=== PATIENT | male | born 1965 | race Caucasian/White ===

== ENCOUNTER 2016-02-22 11:52 | Observation (INO) | payer BC ==
[~2016-02-22] VITALS: Ht 175.3 cm; Wt 108.1 kg
[~2016-02-22 11:52] MED LIST: ACET-1311 PO; ATOR-24 PO; CHOL100010 PO; CRG25 PO; INSDGI SC; INSUINJ14 SC; LISI40TA PO; MULTTAB58 PO; PRLSR20 PO
[2016-02-22] MEDS ORDERED: IBUP-1050 PO (12:43)
[2016-02-22 13:02] LABS: HEMATOCRIT 42.8 % (42-52); MEAN CORPUSCULAR HEMOGLOBIN 32.2 pg (25-34); MEAN CORPUSCULAR HGB CONC 36.2 g/dl (32-36); MEAN PLATELET VOLUME 10.9 fL (7.4-10.4); PLATELET COUNT 241 K/uL (130-400); RED BLOOD COUNT 4.81 M/uL (4.7-6.1); WHITE BLOOD COUNT 9.48 K/uL (4.8-10.8)
[2016-02-22 13:16] LABS: ALB/GLOB RATIO 1.2 (0.9-2); BUN/CREATININE RATIO 11.7 (10-20); CALCIUM 9.2 mg/dl (8.5-10.1); CREATININE 1.2 mg/dl (0.60-1.40); POTASSIUM 4.1 mmol/L (3.5-5.1)
[2016-02-22 14:33] LABS: PROTHROMBIN TIME (PATIENT) 10.5 SECONDS (9.0-12.0)
[2016-02-22] MEDS ORDERED: ONDANSETRON INJ 2 MG/ML 2 ML VIAL IV PRN (16:15)
[2016-02-22] MEDS ORDERED: ACETAMINOPHEN 325 MG TAB PO PRN (16:15)
[2016-02-22] MEDS ORDERED: CARVEDILOL 25 MG TAB PO ONE (16:50)
[2016-02-22] MEDS ORDERED: GLUCOSE 10 TABS/TUBE PO PRN (17:00)
[2016-02-22] MEDS ORDERED: GLUCOSE 40% GEL 15 GM TUBE PO PRN (17:00)
[2016-02-22] MEDS ORDERED: GLUCAGON FOR INJ 1 MG VIAL SQ PRN (17:00)
[2016-02-22] MEDS ORDERED: DEXTROSE 50% 50 ML SYR IV PRN (17:00)
[2016-02-22] MEDS ORDERED: CARVEDILOL 25 MG TAB PO STA (17:12)
--- NOTE | 2016-02-22 17:26 | EMERGENCY ROOM VISIT NOTE ---
History Report prepared by Rodney: Evelyn Guzmán Under the Supervision of: Dr. Chon Griffith D.O. First contact with patient: 12:57 Chief Complaint: GI ASSESSMENT Stated Complaint: BLOOD WHEN HAVING BOWEL MOVEMENT Nursing Triage Summary: Triage note: pt reports this am when he had a bm there was bright red blood. pt right abd pain. pt denies any nausea or vomitting. History of Present Illness The patient is a 50 year old male who presents to the Emergency Room with complaints of sudden hematochezia that was noticed this morning. The patient states that he had a bowel movement this morning and when he wipe he saw blood on the toilet paper. He turned and looked in the toilet but it was automatic flushing so it was starting to flush. He states that he saw about 1/4 cup of blood in the toilet before it flushed. The blood was bright red and did not have any clots. The bowel movement felt normal. He is also experiencing a cough and RUQ abdominal pain. The patient denies dizziness and lightheadedness. The patient has a history of hemorrhoids but has not experienced any issues with them recently. The patient's most recent colonoscopy was within the last year but he is unsure of the exact date. The patient is not on any blood thinners. He states that he was seen in the ED last week and that pain is improving. Source of History: patient Onset: this morning Position: other (rectum) Quality: other (hematochezia, bright red, no clots) Timing: other (sudden) Associated Symptoms: + abdominal pain (RUQ), + cough Note: no dizziness, no lightheadedness Review of Systems See HPI for pertinent positives & negatives. A total of 10 systems reviewed and were otherwise negative. Past Medical & Surgical Medical Problems: (1) High cholesterol (2) HTN (hypertension) (3) Hypertrophic cardiomyopathy (4) Rectal bleeding (5) Type 2 diabetes mellitus Family History No pertinent family history Social History Smoking Status: Current Every Day Smoker Marital Status: single Occupation Status: employed Current/Historical Medications Scheduled Atorvastatin (Lipitor), 40 MG PO QAM Carvedilol (Carvedilol), 25 MG PO BID Cholecalciferol (Vitamin D), 1,000 INTER.UNIT PO QAM Ibuprofen (Advil), 200-600 MG PO Q4H Insulin Aspart (Novolog Penfill), 8 UNITS SC AC Insulin Glargine (Lantus), 24 UNITS SC QPM Lisinopril (Zestril), 40 MG PO QAM Multiple Vitamin (Multivitamin), 1 TAB PO QAM Omeprazole (Prilosec), 20 MG PO QAM Allergies Coded Allergies: Bupropion (Verified Allergy, Unknown, HIVES, 02/22/16) Physical Exam Vital Signs Date Time Temp Pulse Resp B/P Pulse Ox O2 Delivery O2 Flow Rate FiO2 02/22/16 16:15 71 18 215/103 98 Room Air 02/22/16 12:38 37.0 71 18 167/81 97 Room Air 02/22/16 12:05 37.0 71 167/81 97 Room Air Physical Exam GENERAL: alert, sitting up in bed, well appearing, well nourished, no acute distress, non-toxic EYE EXAM: normal conjunctiva OROPHARYNX: no exudate, no erythema, lips, buccal mucosa, and tongue normal and mucous membranes are moist NECK: supple, no nuchal rigidity, no adenopathy, non-tender LUNGS: Clear to auscultation. Normal chest wall mechanics HEART: no murmurs, S1 normal and S2 normal ABDOMEN: abdomen soft, non-tender, normo-active bowel sounds, no masses, no rebound or guarding. BACK: Back is symmetrical on inspection and there is no deformity, no midline tenderness, no CVA tenderness. RECTAL: External hemorrhoids without bleeding, heme positive blood. SKIN: no rashes and no bruising UPPER EXTREMITIES: upper extremities are grossly normal. LOWER EXTREMITIES: No pitting edema. NEURO EXAM: Normal sensorium, cranial nerves II-XII grossly intact, normal speech, no gross weakness of arms, no gross weakness of legs. Medical Decision & Procedures Laboratory Results 02/22/16 12:00 02/22/16 12:00 Test 02/22/16 12:00 02/22/16 14:10 02/22/16 15:36 Red Blood Count 4.81 M/uL (4.7-6.1) Mean Corpuscular Volume 89.0 fL (80-100) Mean Corpuscular Hemoglobin 32.2 pg (25-34) Mean Corpuscular Hemoglobin Concent 36.2 g/dl (32-36) RDW Standard Deviation 44.1 fL (36.4-46.3) RDW Coefficient of Variation 13.5 % (11.5-14.5) Mean Platelet Volume 10.9 fL (7.4-10.4) Anion Gap 8.0 mmol/L (3-11) Est Creatinine Clear Calc Drug Dose 88.4 ml/min Estimated GFR () 80.1 Estimated GFR (Non- 69.1 BUN/Creatinine Ratio 11.7 (10-20) Calcium Level 9.2 mg/dl (8.5-10.1) Total Bilirubin 0.5 mg/dl (0.2-1) Aspartate Amino Transf (AST/SGOT) 27 U/L (15-37) Alanine Aminotransferase (ALT/SGPT) 46 U/L (12-78) Alkaline Phosphatase 138 U/L (45-117) Total Protein 7.4 gm/dl (6.4-8.2) Albumin 4.1 gm/dl (3.4-5.0) Globulin 3.3 gm/dl (2.5-4.0) Albumin/Globulin Ratio 1.2 (0.9-2) Chemistry Specimen Hemolysis Prothrombin Time 10.5 SECONDS (9.0-12.0) Prothromb Time International Ratio 1.0 (0.9-1.1) Activated Partial Thromboplast Time 25.9 SECONDS (21.0-31.0) Partial Thromboplastin Ratio 1.0 Bedside Glucose 99 mg/dl (70-99) Laboratory results per my review. ED Course ED COURSE: Vital signs were reviewed and showed hypertension. The patients medical record was reviewed The above diagnostic studies were performed and reviewed. ED treatments and interventions as stated above. 1300: The patient was evaluated in room C1. A complete history and physical examination was performed. 1513: Upon reevaluation, the patient is resting comfortably. I discussed my findings with the patient and he understands and agrees with the treatment plan. Based on the patients age, coexisting illnesses, exam and lab findings the decision to treat as an inpatient was made. The patient remained stable while under my care. The patient will be evaluated for further management. 1525: I reviewed the patient's case with Martha Kumar. She will evaluate the patient for further management. Medical Decision Differential diagnosis includes etiologies such as diverticulosis, AVM, coagulopathy, colitis, inflammatory bowel disease, malignancy, Odalys-Graham tear, esophagitis, peptic ulcer disease, variceal bleed, gastritis, epistaxis, fissure, hemorrhoids, as well as others were entertained. Patient is a 50-year-old male who presents the ER for bright red blood per rectum. He notes this occurred prior to arrival he had a bowel movement and had a large amount of blood in the bowel. Patient denies any lightheadedness or dizziness. No chest pain. No blood thinners. Labs showed no significant leukocytosis or anemia. BMP along with LFTs, bilirubin or unremarkable. INR was unremarkable. His abdominal exam is completely benign. No signs peritonitis. History is not consistent with ischemic colitis. No history of A. fib. Rectal shows hemorrhoids without active bleeding. He was heme positive. Patient family were updated at bedside. He is admitted to internal medicine for observation for GI bleed. Consults Time Called: 1518 Consulting Physician: Martha Kumar Returned Call: 1525 I reviewed the patient's case with Martha Kumar. She will evaluate the patient for further management. Impression Primary Impression: GI bleed Scribe Attestation The scribe's documentation has been prepared under my direction and personally reviewed by me in its entirety. I confirm that the note above accurately reflects all work, treatment, procedures, and medical decision making performed by me. Departure Information Dispostion Being Evaluated By Hospitalist Referrals Santino Bhatt D.O. (PCP) Patient Instructions A Signature Page, My [facility]
--- NOTE | 2016-02-22 17:30 | Gastrointestinal Consultation ---
Gastrointestinal Consultation Date of Consultation: Feb 22, 2016 Consulting Physician: Dr. Meadows History of Present Illness Patient is a 50 year old male with past medical history significant for hypertrophic cardiocmyopathy, T2DM, HTN and elevated triglycerides who presented to the ED with one episode of BRBPR. He reports that he was in his usual state of health until an episode of BRBPR this morning around 9 am. He denies any associated symptoms. He reports bright red blood on the toilet tissue , and mixed in with the water. He reports the stool was brown and without any blood. He denies any abdominal pain, chest pain, SOB, lightheadedness, dizziness , fever or chills. He denies any other history of black/bloody stools. He was recently in the ED for back pain and was provided with narcotics. He said he has been constipated for the past few days and has been straining frequently with his stools. Constipation has since resolved. He also reports RUQ pain. The pain is dull in nature. He reports he was wearing a back brace for the past two days and the pain feels superficial and is located in the area of the edge of the brace. He denies any nausea, vomiting, radiation of the pain or other symptoms. Colonoscopy for screening in 2014: The perianal and digital rectal examinations were normal. A 3 mm polyp was found in the sigmoid colon. The polyp was sessile. The polyp was removed with a cold biopsy forceps. Resection and retrieval were complete. There was a small lipoma, at 40 cm proximal to the anus. Biopsies were taken with a cold forceps for histology. There were also two small lipomas in the ascending and transverse colon. He is hemodynamically stable from previous ED visit 01/2016. Hgb 15.5 Family History No pertinent family history Social History Smoking Status: Current Every Day Smoker Marital Status: single Occupation Status: employed Allergies Coded Allergies: Bupropion (Verified Allergy, Unknown, HIVES, 02/22/16) Current Medications Home Meds and Scripts Medications Dose Route/Sig Max Daily Dose Days Date Category Advil (Ibuprofen) 200 Mg Tab 200-600 Mg PO Q4H 02/22/16 Reported Carvedilol 25 Mg Tab 25 Mg PO BID 02/14/16 Reported Vitamin D (Cholecalciferol) 1,000 Inter.unit Tab 1,000 Inter.unit PO QAM 12/20/14 Reported Multivitamin (Multiple Vitamin) 1 Tab Tab 1 Tab PO QAM 12/20/14 Reported Zestril (Lisinopril) 40 Mg Tab 40 Mg PO QAM 12/20/14 Reported Novolog Penfill (Insulin Aspart) 100 Unit/ Inj 8 Units SC AC 12/20/14 Reported Lantus (Insulin Glargine) 100 Unit/Ml Inj 24 Units SC QPM 12/20/14 Reported Prilosec (Omeprazole) 20 Mg Capcr 20 Mg PO QAM 12/20/14 Reported Lipitor (Atorvastatin Calcium) 40 Mg Tab 40 Mg PO QAM 12/20/14 Reported Review of Systems Constitutional: No chills, No fever Respiratory: No cough, No shortness of breath Cardiac: No chest pain, No edema Abdomen: + GI bleeding, No constipation, No diarrhea, No nausea, No pain, No vomiting Skin: No rash Physical Exam Date Time Temp Pulse Resp B/P Pulse Ox O2 Delivery O2 Flow Rate FiO2 02/22/16 16:15 71 18 215/103 98 Room Air 02/22/16 12:38 37.0 71 18 167/81 97 Room Air 02/22/16 12:05 37.0 71 18 167/81 97 Room Air General Appearance: no apparent distress Eyes: PERRL ENT: hearing grossly normal Neck: supple, trachea midline Respiratory/Chest: lungs clear, normal breath sounds, no respiratory distress, no accessory muscle use Cardiovascular: regular rate, rhythm, no edema, no gallop, no JVD, no murmur Abdomen: normal bowel sounds, non tender, soft, no organomegaly Neurologic/Psych: alert, normal mood/affect, oriented x 3 Skin: warm/dry Laboratory Results Last 24 Hours Test 02/22/16 12:00 02/22/16 14:10 02/22/16 15:36 White Blood Count 9.48 K/uL Red Blood Count 4.81 M/uL Hemoglobin 15.5 g/dL Hematocrit 42.8 % Mean Corpuscular Volume 89.0 fL Mean Corpuscular Hemoglobin 32.2 pg Mean Corpuscular Hemoglobin Concent 36.2 g/dl RDW Standard Deviation 44.1 fL RDW Coefficient of Variation 13.5 % Platelet Count 241 K/uL Mean Platelet Volume 10.9 fL Sodium Level 138 mmol/L Potassium Level 4.1 mmol/L Chloride Level 105 mmol/L Carbon Dioxide Level 25 mmol/L Anion Gap 8.0 mmol/L Blood Urea Nitrogen 14 mg/dl Creatinine 1.20 mg/dl Est Creatinine Clear Calc Drug Dose 88.4 ml/min Estimated GFR () 80.1 Estimated GFR (Non- 69.1 BUN/Creatinine Ratio 11.7 Random Glucose 119 mg/dl Calcium Level 9.2 mg/dl Total Bilirubin 0.5 mg/dl Aspartate Amino Transf (AST/SGOT) 27 U/L Alanine Aminotransferase (ALT/SGPT) 46 U/L Alkaline Phosphatase 138 U/L Total Protein 7.4 gm/dl Albumin 4.1 gm/dl Globulin 3.3 gm/dl Albumin/Globulin Ratio 1.2 Chemistry Specimen Hemolysis Prothrombin Time 10.5 SECONDS Prothromb Time International Ratio 1.0 Activated Partial Thromboplast Time 25.9 SECONDS Partial Thromboplastin Ratio 1.0 Bedside Glucose 99 mg/dl Impression Patient is a 50 year old male being evaluated for painless rectal bleeding, with visualized external hemorrhoids, and a recent colonoscopy in 2014 with 3 lipomas and 1 sessile polyp. He reports one episode of bleeding early this AM without any associated symptoms. He has yet to have another episode of bleeding. Differentials include hemorrhoidal bleed, diverticular bleed, colon CA etc Plan Monitor overnight Clear Liquids - can advance diet tomorrow AM if there are no more episodes of bleeding Avoid narcotics if possible RUQ US Monitor H&H Monitor stools for bleeding overnight GI will follow and re-assess need for repeat colonoscopy if bleeding persists
--- NOTE | 2016-02-22 18:07 | DIAGNOSTIC IMAGING REPORT ---
Right upper quadrant ultrasound GALLBLADDER-ABD LIMITED CLINICAL HISTORY: r/o gallbladder pathology pain. Nausea. TECHNIQUE: Ultrasound COMPARISON STUDY: None FINDINGS: Fatty infiltration of liver. Small gallbladder polyp. Trace gallbladder sludge. No shadowing gallstones. Common bile duct 2 mm. Poor visibility of the pancreas. Right kidney is negative for hydronephrosis. IMPRESSION: 1. Fatty infiltration of liver. 2. Small gallbladder polyp. 3. Normal caliber bile duct. Electronically signed by: Amilcar Massey M.D. 02/22/2016 6:06 PM
[2016-02-22 18:35] VITALS: BP 198/92; PULSE 68; TEMP 36.5; O2SAT 95
[2016-02-22 18:46] VITALS: BP 198/92; PULSE 68; TEMP 36.5; Ht 175.3 cm; Wt 108.1 kg
[2016-02-22] MEDS ORDERED: IV FLUIDS COMPLETED PRN (19:30)
[2016-02-22] MEDS ORDERED: INFLUENZA VIRUS QUAD VACCINE 0.5 ML SYR IM. ONE (19:45)
[2016-02-22] MEDS ORDERED: INFLUENZA ADMINISTRATION CHARGE ONE (19:45)
[2016-02-22] MEDS: INSULIN ASPART 100 UNITS/ML 3 ML PEN SC SCH (21:39)
--- NOTE | 2016-02-22 22:23 | History and Physical ---
History & Physical Date & Time of Service: Feb 22, 2016 at 17:12 Chief Complaint: Blood When Having Bowel Movement Primary Care Physician: Santino Bhatt D.O. History of Present Illness Source: family, clinic records, hospital records This is a 50 year old male with PMH of GERD, HTN, HOCM, HL, DM 2, and other problems listed below who presents to ED for rectal bleeding. Patient had 1 episode of bright red blood per rectum this morning noticed on toilet paper and 1-2 tablespoons in toilet along with brown colored stool. Patient was recently in ER for back strain and was prescribed narcotic medication, and was constipated after that and had been straining, which resolved. No rectal pain. He has had mild RUQ pain since yesterday which he attributes to irritation from wearing his back brace. He was eating normally without any increased discomfort. He has a cough with yellow sputum for 1 week. No dizziness, fever chills, rhinorrhea, chest pain, SOB, nausea, vomiting, diarrhea, black tarry stools. He has been taking ibuprofen 400 mg q4h PRN back pain. Patient's last colonoscopy was in 12/2014 showed polyp and lipomas. Denies hx of GIB. 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 requests patch. advised for cessation.) Alcohol Use: none Drug Use: none Marital Status: single Occupational Status: employed Multi-Drug Resistant Organisms History of MDRO: No Allergies Coded Allergies: Bupropion (Verified Allergy, Unknown, HIVES, 02/22/16) Home Medications Scheduled Atorvastatin (Lipitor), 40 MG PO QAM Carvedilol (Carvedilol), 25 MG PO BID Cholecalciferol (Vitamin D), 1,000 INTER.UNIT PO QAM Insulin Aspart (Novolog Penfill), 8 UNITS SC AC Insulin Glargine (Lantus), 24 UNITS SC QPM Lisinopril (Zestril), 40 MG PO QAM Multiple Vitamin (Multivitamin), 1 TAB PO QAM Omeprazole (Prilosec), 20 MG PO QAM Review of Systems Ten point review of systems performed with pertinent positives and negatives per HPI. Physical Exam Vital Signs Date Time Temp Pulse Resp B/P Pulse Ox O2 Delivery O2 Flow Rate FiO2 02/22/16 16:15 71 18 215/103 98 Room Air 02/22/16 12:38 37.0 71 18 167/81 97 Room Air 02/22/16 12:05 37.0 71 18 167/81 97 Room Air General Appearance: WD/WN, no apparent distress, + pertinent finding (alert pleasant cooperative 50 year old male) Head: normocephalic, atraumatic Eyes: normal inspection, PERRL, EOMI ENT: normal ENT inspection, hearing grossly normal, pharynx normal Neck: supple, trachea midline Respiratory/Chest: lungs clear, normal breath sounds, no respiratory distress, no accessory muscle use Cardiovascular: regular rate, rhythm, no murmur, normal peripheral pulses Abdomen/GI: normal bowel sounds, non tender, soft Extremities/Musculoskelatal: no calf tenderness, normal capillary refill, no pedal edema Neurologic/Psych: alert, normal mood/affect, oriented x 3, + pertinent finding (no gross focal deficit) Skin: normal color, warm/dry Diagnostics Laboratory Results Results Past 24 Hours Test 02/22/16 12:00 02/22/16 14:10 02/22/16 15:36 Range/Units White Blood Count 9.48 4.8-10.8 K/uL Red Blood Count 4.81 4.7-6.1 M/uL Hemoglobin 15.5 14.0-18.0 g/dL Hematocrit 42.8 42-52 % Mean Corpuscular Volume 89.0 80-100 fL Mean Corpuscular Hemoglobin 32.2 25-34 pg Mean Corpuscular Hemoglobin Concent 36.2 32-36 g/dl RDW Standard Deviation 44.1 36.4-46.3 fL RDW Coefficient of Variation 13.5 11.5-14.5 % Platelet Count 241 130-400 K/uL Mean Platelet Volume 10.9 7.4-10.4 fL Sodium Level 138 136-145 mmol/L Potassium Level 4.1 3.5-5.1 mmol/L Chloride Level 105 98-107 mmol/L Carbon Dioxide Level 25 21-32 mmol/L Anion Gap 8.0 3-11 mmol/L Blood Urea Nitrogen 14 7-18 mg/dl Creatinine 1.20 0.60-1.40 mg/dl Est Creatinine Clear Calc Drug Dose 88.4 ml/min Estimated GFR () 80.1 Estimated GFR (Non- 69.1 BUN/Creatinine Ratio 11.7 10-20 Random Glucose 119 70-99 mg/dl Calcium Level 9.2 8.5-10.1 mg/dl Total Bilirubin 0.5 0.2-1 mg/dl Aspartate Amino Transf (AST/SGOT) 27 15-37 U/L Alanine Aminotransferase (ALT/SGPT) 46 12-78 U/L Alkaline Phosphatase 138 45-117 U/L Total Protein 7.4 6.4-8.2 gm/dl Albumin 4.1 3.4-5.0 gm/dl Globulin 3.3 2.5-4.0 gm/dl Albumin/Globulin Ratio 1.2 0.9-2 Chemistry Specimen Hemolysis Prothrombin Time 10.5 9.0-12.0 SECONDS Prothromb Time International Ratio 1.0 0.9-1.1 Activated Partial Thromboplast Time 25.9 21.0-31.0 SECONDS Partial Thromboplastin Ratio 1.0 Bedside Glucose 99 70-99 mg/dl Diagnostic Radiology Right upper quadrant ultrasound GALLBLADDER-ABD LIMITED CLINICAL HISTORY: r/o gallbladder pathology pain. Nausea. TECHNIQUE: Ultrasound COMPARISON STUDY: None FINDINGS: Fatty infiltration of liver. Small gallbladder polyp. Trace gallbladder sludge. No shadowing gallstones. Common bile duct 2 mm. Poor visibility of the pancreas. Right kidney is negative for hydronephrosis. IMPRESSION: 1. Fatty infiltration of liver. 2. Small gallbladder polyp. 3. Normal caliber bile duct. Impression Assessment and Plan RECTAL BLEEDING Had 1 episode BRBPR prior to arrival; heme positive rectal exam with external hemorrhoids as per ER provider Likely lower GI bleed H/H stable; hemodynamically stable Monitor H/H q8h Clear liquid diet Consult GI- appreciate input RUQ PAIN Check GB ultrasound- fatty liver, small gallbladder polyp, no CBD distension HYPERTENSION BP elevated in ER Give PM dose of coreg Continue coreg and lisinopril DM TYPE 2 Hold Lantus while on clear liquid diet Insulin sliding scale DYSLIPIDEMIA Continue statin TOBACCO ABUSE Cessation advised Nicotine patch ordered DVT PROPHYLAXIS SCDs due to gi bleeding DISPOSITION Obs to telemetry Follows with Dr. Bhatt for primary care Patient seen in collaboration with Dr. Lott. Please see his addendum. Attending Addendum Pt was seen and examined. Agree with Hanh's PA exam, assessment and plan. 50 year old male with PMH of GERD, HTN, HOCM, HL, DM 2 presents to ED for rectal bleeding after he had an episode of bright red blood per rectum this morning. Denies any weakness, abdominal pain,dizziness and SOB. General- no acute distress Head- atraumatic Eyes- PERRL, EOMI ENT- oropharynx clear Neck- supple, no JVD Lungs- clear to auscultation and percussion Heart- regular rhythm Abdomen- normal bowel sounds, soft Extremities- no calf tenderness a/p RECTAL BLEEDING Hgb on admission stable Monitor H/H, will transfuse if h/h drop below 8 Clear liquid diet Will Consult GI PPI Lab, imaging reviewed Please refer to Martha's PA documentation for other problems. Gina Lott MD VTE Prophylaxis VTE Risk Assessment Done? Y/N: Yes Risk Level: Moderate
[2016-02-22 22:34] LABS: HEMATOCRIT 40.9 % (42-52)
[2016-02-22 23:30] VITALS: BP 192/99; PULSE 67; TEMP 36.8; O2SAT 93
[2016-02-23] VITALS (7 sets, daily range): BP systolic 154–185; BP diastolic 76–80; PULSE 70–76; TEMP 36.5–36.8; O2SAT 94–97
[2016-02-23] MEDS ORDERED: HydrALAZINE HCL 20 MG/ML VIAL IV. STA (00:04)
[2016-02-23] MEDS ORDERED: ENALAPRILAT IV 2.5 MG in DEXTROSE 5% 25ML 25 ML IV ONE (00:30)
[2016-02-23 06:10] LABS: HEMATOCRIT 42.1 % (42-52); MEAN CELL VOLUME 88.1 fL (80-100); MEAN CORPUSCULAR HEMOGLOBIN 31.4 pg (25-34); MEAN CORPUSCULAR HGB CONC 35.6 g/dl (32-36); MEAN PLATELET VOLUME 10.5 fL (7.4-10.4); PLATELET COUNT 228 K/uL (130-400); RED BLOOD COUNT 4.78 M/uL (4.7-6.1); WHITE BLOOD COUNT 9.91 K/uL (4.8-10.8)
[2016-02-23 06:45] LABS: BUN/CREATININE RATIO 11.1 (10-20); CALCIUM 9.2 mg/dl (8.5-10.1); CREATININE 1.1 mg/dl (0.60-1.40); MAGNESIUM 2.1 mg/dl (1.8-2.4); POTASSIUM 3.8 mmol/L (3.5-5.1)
[2016-02-23] MEDS ORDERED: HydrALAZINE HCL 20 MG/ML VIAL IV. PRN (08:00)
[2016-02-23] MEDS: INSULIN ASPART 100 UNITS/ML 3 ML PEN SC SCH ×2 (08:42→13:40)
[2016-02-23] MEDS ORDERED: LISINOPRIL 40 MG TAB PO SCH (09:00)
[2016-02-23] MEDS ORDERED: CHOLECALCIFEROL 1000 INTER.UNIT TAB PO SCH (09:00)
[2016-02-23] MEDS ORDERED: MULTIVITAMIN TAB PO SCH (09:00)
[2016-02-23] MEDS ORDERED: CARVEDILOL 25 MG TAB PO SCH (09:00)
[2016-02-23] MEDS ORDERED: PANTOprazole SOD 40 MG TAB PO SCH (09:00)
[2016-02-23] MEDS ORDERED: NICOTINE 21 MG/24 HR TDSY TD SCH (09:00)
[2016-02-23] MEDS ORDERED: ATORVASTATIN 40 MG TAB PO SCH (09:00)
--- NOTE | 2016-02-23 09:51 | Gastroenterology Progress Note ---
Progress Note Date of Service: Feb 23, 2016 Subjective Pt evaluation today including: conversation w/ patient, physical exam, chart review Patient states that he felt well overnight. Denies any addition BM or rectal bleeding. He has been passing gas without any black/bloody discharge. HGB on admission was 15.5 rechecked at 14.7 and rechecked today at 15. Patient states that he would like to be discharged and followup outpatient if needed. He states that he is willing to repeat an outpatient colonoscopy if warranted. Denies abd pain, chest pain, SOB, fever, chills. Patient would like to get the flu shot if possible before discharge. RUQ US Fatty infiltration of liver. Small gallbladder polyp. Trace gallbladder sludge. No shadowing gallstones. Common bile duct 2 mm. Poor visibility of the pancreas. Right kidney is negative for hydronephrosis Review of Systems Constitutional: No chills, No fever ENT: No hearing loss Cardiac: No chest pain, No edema Abdomen: No GI bleeding, No constipation, No diarrhea, No nausea, No pain, No vomiting Medications Current Inpatient Medications Medications (Trade) Dose Ordered Sig/Nicholas Route Start Time Stop Time Status Last Admin Dose Admin Acetaminophen (Tylenol Tab) 650 mg Q4H PRN PO 02/22/16 16:15 03/23/16 16:14 02/23/16 08:49 650 MG Ondansetron HCl (Zofran Inj) 4 mg Q6H PRN IV 02/22/16 16:15 03/23/16 16:14 Atorvastatin Calcium (Lipitor Tab) 40 mg QAM PO 02/23/16 09:00 03/24/16 08:59 02/23/16 08:40 40 MG Cholecalciferol (Vitamin D Tab) 1,000 inter.unit QAM PO 02/23/16 09:00 03/24/16 08:59 02/23/16 08:40 1,000 INTER.UNIT Lisinopril (Zestril Tab) 40 mg QAM PO 02/23/16 09:00 03/24/16 08:59 02/23/16 08:40 40 MG Multivitamins (Multivitamin Tab) 1 tab QAM PO 02/23/16 09:00 03/24/16 08:59 02/23/16 08:40 1 TAB Pantoprazole Sodium (Protonix Tab) 40 mg QAM PO 02/23/16 09:00 03/24/16 08:59 02/23/16 08:40 40 MG Insulin Aspart (novoLOG ASPART) SLIDING SCALE If C... ACHS SC 02/22/16 21:00 03/23/16 20:59 02/23/16 08:42 5 UNITS Glucose (Glucose 40% Gel) 15-30 GRAMS 15 GRAMS... UD PRN PO 02/22/16 17:00 03/23/16 16:59 Glucose (Glucose Chew Tab) 4-8 Tablets 4 Tabl... UD PRN PO 02/22/16 17:00 03/23/16 16:59 Dextrose (Dextrose 50% 50ML Syringe) 25-50ML OF 50% DW IV FOR... UD PRN IV 02/22/16 17:00 03/23/16 16:59 Glucagon (Glucagon Inj) 1 mg UD PRN SQ 02/22/16 17:00 03/23/16 16:59 Miscellaneous (Iv Fluids Completed) 1 ea PRN PRN N/A 02/22/16 19:30 02/21/17 19:29 Nicotine (Nicoderm Cq 21MG Patch) 1 patch QAM TD 02/23/16 09:00 03/24/16 08:59 02/23/16 09:30 1 PATCH Miscellaneous (Remove Nicoderm Patch) 1 ea HS N/A 02/23/16 21:00 03/24/16 20:59 Hydralazine HCl (HydrALAZINE INJ) 10 mg Q4 PRN IV. 02/23/16 08:00 03/24/16 07:59 Objective Vital Signs Date Time Temp Pulse Resp B/P Pulse Ox O2 Delivery O2 Flow Rate FiO2 02/23/16 08:00 Room Air 02/23/16 08:00 36.8 76 16 185/80 94 Room Air 02/23/16 08:00 94 Room Air 02/23/16 04:00 Room Air 02/23/16 03:57 36.5 70 21 174/79 94 Nasal Cannula 2.0 02/23/16 01:34 76 166/77 02/23/16 00:00 Room Air 02/22/16 23:30 36.8 67 22 192/99 93 Room Air 02/22/16 20:10 Room Air 02/22/16 18:46 36.5 68 18 198/92 Room Air 02/22/16 18:35 36.5 68 18 198/92 95 Room Air 02/22/16 18:26 69 18 198/99 96 02/22/16 18:21 69 18 198/99 96 Room Air 02/22/16 16:15 71 18 215/103 98 Room Air 02/22/16 12:38 37.0 71 18 167/81 97 Room Air 02/22/16 12:05 37.0 71 18 167/81 97 Room Air Physical Exam General Appearance: no apparent distress Eyes: PERRL ENT: hearing grossly normal Neck: supple, trachea midline Respiratory/Chest: lungs clear, normal breath sounds, no respiratory distress, no accessory muscle use Cardiovascular: regular rate, rhythm, no edema, no gallop, no JVD, no murmur Abdomen: normal bowel sounds, non tender, soft, no organomegaly Neurologic/Psych: alert, normal mood/affect, oriented x 3 Skin: normal color, no jaundice, warm/dry Laboratory Results Last 24 Hours Test 02/22/16 12:00 02/22/16 14:10 02/22/16 15:36 02/22/16 20:47 White Blood Count 9.48 K/uL Red Blood Count 4.81 M/uL Hemoglobin 15.5 g/dL Hematocrit 42.8 % Mean Corpuscular Volume 89.0 fL Mean Corpuscular Hemoglobin 32.2 pg Mean Corpuscular Hemoglobin Concent 36.2 g/dl RDW Standard Deviation 44.1 fL RDW Coefficient of Variation 13.5 % Platelet Count 241 K/uL Mean Platelet Volume 10.9 fL Sodium Level 138 mmol/L Potassium Level 4.1 mmol/L Chloride Level 105 mmol/L Carbon Dioxide Level 25 mmol/L Anion Gap 8.0 mmol/L Blood Urea Nitrogen 14 mg/dl Creatinine 1.20 mg/dl Est Creatinine Clear Calc Drug Dose 88.4 ml/min Estimated GFR () 80.1 Estimated GFR (Non- 69.1 BUN/Creatinine Ratio 11.7 Random Glucose 119 mg/dl Calcium Level 9.2 mg/dl Total Bilirubin 0.5 mg/dl Aspartate Amino Transf (AST/SGOT) 27 U/L Alanine Aminotransferase (ALT/SGPT) 46 U/L Alkaline Phosphatase 138 U/L Total Protein 7.4 gm/dl Albumin 4.1 gm/dl Globulin 3.3 gm/dl Albumin/Globulin Ratio 1.2 Chemistry Specimen Hemolysis Prothrombin Time 10.5 SECONDS Prothromb Time International Ratio 1.0 Activated Partial Thromboplast Time 25.9 SECONDS Partial Thromboplastin Ratio 1.0 Bedside Glucose 99 mg/dl 250 mg/dl Test 02/22/16 22:20 02/22/16 23:42 02/23/16 05:54 02/23/16 08:05 Hemoglobin 14.7 g/dL 15.0 g/dL Hematocrit 40.9 % 42.1 % Hepatitis C Antibody Screen NEG Bedside Glucose 131 mg/dl 154 mg/dl White Blood Count 9.91 K/uL Red Blood Count 4.78 M/uL Mean Corpuscular Volume 88.1 fL Mean Corpuscular Hemoglobin 31.4 pg Mean Corpuscular Hemoglobin Concent 35.6 g/dl RDW Standard Deviation 43.6 fL RDW Coefficient of Variation 13.4 % Platelet Count 228 K/uL Mean Platelet Volume 10.5 fL Sodium Level 137 mmol/L Potassium Level 3.8 mmol/L Chloride Level 103 mmol/L Carbon Dioxide Level 26 mmol/L Anion Gap 8.0 mmol/L Blood Urea Nitrogen 12 mg/dl Creatinine 1.10 mg/dl Est Creatinine Clear Calc Drug Dose 95.2 ml/min Estimated GFR () 89.0 Estimated GFR (Non- 76.8 BUN/Creatinine Ratio 11.1 Random Glucose 139 mg/dl Calcium Level 9.2 mg/dl Magnesium Level 2.1 mg/dl Assessment and Plan GI ok to advance diet Avoid narcotics Promote ambulation Use MIRALAX prn for constipation outpatient appointment for hemorrhoid outpatient colonoscopy Please call with any questions
[2016-02-23] MEDS ORDERED: FENTANYL CITRATE INJ 50 MCG/1 ML 2 ML VIAL ONE (11:57)
[2016-02-23] MEDS ORDERED: MIDAZOLAM HCL 5 MG/ML 1 ML VIAL ONE ×2 (11:58)
--- NOTE | 2016-02-23 12:37 | GI REPORT ---
Procedure Date: 02/23/2016 12:19 PM Procedure: Flexible Sigmoidoscopy Indications: Rectal hemorrhage Medicines: Midazolam 3 mg IV, Fentanyl 50 micrograms IV Complications: No immediate complications. Estimated Blood Loss: Estimated blood loss: none. Procedure: Pre-Anesthesia Assessment: - ASA Grade Assessment: II - A patient with mild systemic disease. After obtaining informed consent, the endoscope was passed under direct vision. Throughout the procedure, the patient's blood pressure, pulse, and oxygen saturations were monitored continuously. The scope was introduced through the anus and advanced to the splenic flexure. The flexible sigmoidoscopy was accomplished without difficulty. The patient tolerated the procedure well. The quality of the bowel preparation was good. Findings: The perianal exam findings include non-thrombosed external hemorrhoids. The entire examined colon appeared normal. Impression: - Non-thrombosed external hemorrhoids found on perianal exam. - The entire examined colon is normal. - No specimens collected. Recommendation: - Pt to return to floor. Discharge pt home. Everton Santos MD 02/23/2016 12:36:12 PM This report has been signed electronically. Note Initiated On: 02/23/2016 12:19 PM
[2016-02-23 14:14] LABS: HEMATOCRIT 44.5 % (42-52)
--- NOTE | 2016-02-23 16:12 | Progress Note ---
Medicine Progress Note Date & Time of Visit: Feb 23, 2016 at 16:00. Subjective Pt was seen and examined Sitting in bed comfortable with no distress Pt said that he feels fine he denies any chest pain, palpitation, dizziness and SOB denies any active bleeding Objective Last 8 Hrs Date Time Temp Pulse Resp B/P Pulse Ox O2 Delivery O2 Flow Rate FiO2 02/23/16 15:40 36.6 70 20 154/76 94 Room Air 02/23/16 13:15 Room Air 02/23/16 12:58 57 18 146/67 100 Room Air 02/23/16 12:42 64 18 147/74 97 Room Air 02/23/16 12:33 60 18 179/79 98 Nasal Cannula 3 02/23/16 12:28 61 16 192/84 97 Nasal Cannula 3 02/23/16 12:22 61 20 185/95 98 Nasal Cannula 3 02/23/16 12:08 36.6 65 18 194/93 95 Room Air 02/23/16 12:00 36.8 74 22 154/80 97 Room Air 02/23/16 11:48 36.8 76 16 185/80 94 Room Air 2.0 Physical Exam: General- very pleasant Head- atraumatic Eyes- PERRL, EOMI ENT- oropharynx clear Neck- supple, no JVD Lungs- clear to auscultation and percussion Heart- regular rhythm; no murmur Abdomen- normal bowel sounds, soft Extremities- no calf tenderness Neuro- alert, oriented x 3; PERRL, EOMI; no facial palsy Skin- warm & dry Laboratory Results: Last 24 Hours Test 02/22/16 20:47 02/22/16 22:20 02/22/16 23:42 02/23/16 05:54 Bedside Glucose 250 mg/dl 131 mg/dl Hemoglobin 14.7 g/dL 15.0 g/dL Hematocrit 40.9 % 42.1 % Hepatitis C Antibody Screen NEG White Blood Count 9.91 K/uL Red Blood Count 4.78 M/uL Mean Corpuscular Volume 88.1 fL Mean Corpuscular Hemoglobin 31.4 pg Mean Corpuscular Hemoglobin Concent 35.6 g/dl RDW Standard Deviation 43.6 fL RDW Coefficient of Variation 13.4 % Platelet Count 228 K/uL Mean Platelet Volume 10.5 fL Sodium Level 137 mmol/L Potassium Level 3.8 mmol/L Chloride Level 103 mmol/L Carbon Dioxide Level 26 mmol/L Anion Gap 8.0 mmol/L Blood Urea Nitrogen 12 mg/dl Creatinine 1.10 mg/dl Est Creatinine Clear Calc Drug Dose 95.2 ml/min Estimated GFR () 89.0 Estimated GFR (Non- 76.8 BUN/Creatinine Ratio 11.1 Random Glucose 139 mg/dl Calcium Level 9.2 mg/dl Magnesium Level 2.1 mg/dl Test 02/23/16 08:05 02/23/16 11:37 02/23/16 14:03 Bedside Glucose 154 mg/dl 171 mg/dl Hemoglobin 15.6 g/dL Hematocrit 44.5 % Assessment & Plan RECTAL BLEEDING Had 1 episode BRBPR prior to arrival; heme positive rectal exam with external hemorrhoids as per ER provider Likely lower GI bleed Hgb is stable had a sigmoidoscopy done today that only showed external hemorrhoid From GI standpoint pt is stable Tolerated diet very well HYPERTENSION BP elevated in ER Continue lisinopril Coreg was held this morning due to bradycardia and skipped beat BRADYCARDIA Cardiology was consulted Stable from cardiac standpoint DM TYPE 2 will resume Lantus Insulin sliding scale DYSLIPIDEMIA Continue statin TOBACCO ABUSE Cessation advised Nicotine patch ordered DVT PROPHYLAXIS SCDs due to GI bleeding DISPOSITION Obs to telemetry Follows with Dr. Bhatt for primary care Current Inpatient Medications: Current Inpatient Medications Medications (Trade) Dose Ordered Sig/Nicholas Route Start Time Stop Time Status Last Admin Dose Admin Acetaminophen (Tylenol Tab) 650 mg Q4H PRN PO 02/22/16 16:15 03/23/16 16:14 02/23/16 08:49 650 MG Ondansetron HCl (Zofran Inj) 4 mg Q6H PRN IV 02/22/16 16:15 03/23/16 16:14 Atorvastatin Calcium (Lipitor Tab) 40 mg QAM PO 02/23/16 09:00 03/24/16 08:59 02/23/16 08:40 40 MG Cholecalciferol (Vitamin D Tab) 1,000 inter.unit QAM PO 02/23/16 09:00 03/24/16 08:59 02/23/16 08:40 1,000 INTER.UNIT Lisinopril (Zestril Tab) 40 mg QAM PO 02/23/16 09:00 03/24/16 08:59 02/23/16 08:40 40 MG Multivitamins (Multivitamin Tab) 1 tab QAM PO 02/23/16 09:00 03/24/16 08:59 02/23/16 08:40 1 TAB Pantoprazole Sodium (Protonix Tab) 40 mg QAM PO 02/23/16 09:00 03/24/16 08:59 02/23/16 08:40 40 MG Insulin Aspart (novoLOG ASPART) SLIDING SCALE If C... ACHS SC 02/22/16 21:00 03/23/16 20:59 02/23/16 13:40 3 UNITS Glucose (Glucose 40% Gel) 15-30 GRAMS 15 GRAMS... UD PRN PO 02/22/16 17:00 03/23/16 16:59 Glucose (Glucose Chew Tab) 4-8 Tablets 4 Tabl... UD PRN PO 02/22/16 17:00 03/23/16 16:59 Dextrose (Dextrose 50% 50ML Syringe) 25-50ML OF 50% DW IV FOR... UD PRN IV 02/22/16 17:00 03/23/16 16:59 Glucagon (Glucagon Inj) 1 mg UD PRN SQ 02/22/16 17:00 03/23/16 16:59 Miscellaneous (Iv Fluids Completed) 1 ea PRN PRN N/A 02/22/16 19:30 02/21/17 19:29 Nicotine (Nicoderm Cq 21MG Patch) 1 patch QAM TD 02/23/16 09:00 03/24/16 08:59 02/23/16 09:30 1 PATCH Miscellaneous (Remove Nicoderm Patch) 1 ea HS N/A 02/23/16 21:00 03/24/16 20:59 Hydralazine HCl (HydrALAZINE INJ) 10 mg Q4 PRN IV. 02/23/16 08:00 03/24/16 07:59
--- NOTE | 2016-02-23 16:36 | Discharge Instructions ---
Discharge Instructions Admission Reason for Admission: Rectal Bleeding Discharge Discharge Diagnosis / Problem: External Hemorrhoid, Hypertension Discharge Goals Goal(s): Decrease discomfort, Improve function, Improve disease control Activity Recommendations Activity Limitations: resume your previous activity . Instructions / Follow-Up Instructions / Follow-Up Follow up with your primary care provider Dr. Bhatt on Feb 27 @ 11:10am Discussed with Patient to avoid taking NSAID such as motrin, aleve, ibuprofen and naproxen Current Hospital Diet Patient's current hospital diet: Diabetes Type 2 Diet, AHA Diet (Heart Healthy) Discharge Diet Recommended Diet: AHA Diet (Heart Healthy), Diabetes Type 2 Diet Procedures Procedures Performed: SIGMOIDOSCOPY Pending Studies Studies pending at discharge: no Work Instructions Additional Instructions: Patient was admitted at [facility] on 02/22/16. Ok to return to work on 02/27/16 with no work restrictions Medical Emergencies . Who to Call and When: Medical Emergencies: If at any time you feel your situation is an emergency, please call 911 immediately. . Non-Emergent Contact Non-Emergency issues call your: Primary Care Provider Call Non-Emergent contact if: you have any medication questions . . "Provider Documentation" section prepared by Gina Lott. VTE Core Measure Inpt VTE Proph given/why not?: SCD's
--- NOTE | 2016-02-23 17:03 | CARDIOLOGY CONSULTATION ---
DATE OF CONSULTATION: 02/23/2016 CONSULTATION REQUESTED BY: Ioana Szymanski DO REASON FOR CONSULTATION: Sinus bradycardiac while sleeping. HISTORY OF PRESENT ILLNESS: Mr. Villareal is a very pleasant 50-year-old gentleman who normally follows with Dr. Orozco of our cardiology practice, who presented to [facility] on 02/22/2016 with a complaint of bright red blood per rectum. He was admitted to telemetry. His hemoglobin was stable and he was planned for colonoscopy in the a.m. Overnight, the patient was found to be bradycardic while sleeping with rates in the 30s with no significant arrhythmias or significant blocks. The patient was completely asymptomatic and denied experiencing any symptoms. Of note, the patient has been seen by Sleep Medicine and has been diagnosed with obstructive sleep apnea and he is awaiting CPAP placement. Otherwise, he states he feels well. He has undergone sigmoidoscopy which was unremarkable. PAST SURGICAL HISTORY: 1. Colonoscopy. 2. Dermal grafts. 3. Parotid gland excision. MEDICAL ILLNESSES: 1. Hypertrophic obstructive cardiomyopathy with asymmetric hypertrophy of the posterior wall, also attachment of a prominent papillary muscle dislocation. 2. Obstructive sleep apnea, awaiting CPAP placement. 3. Hypertension. 4. Tobacco abuse. 5. Diabetes. 6. Dyslipidemia. 7. Elevated BMI. FAMILY HISTORY: Noncontributory. SOCIAL HISTORY: The patient is a lifelong smoker and continues to smoke on a regular basis. Drinks rare alcohol. Denies any recreational drug use. He is not . He is employed, working in maintenance at [employer]. REVIEW OF SYSTEMS: As per HPI. All other review of systems reviewed and negative at this time. ALLERGIES: BUPROPION. MEDICATIONS AN OUTPATIENT: 1. Coreg 25 mg b.i.d. 2. Lisinopril 40 mg daily. 3. Atorvastatin 40 mg daily. 4. Omeprazole daily. 5. Insulin sliding scale. 6. Lantus daily. PHYSICAL EXAMINATION: VITALS: Temperature is 36.6, pulse 70, respiratory rate 12, blood pressure 154/76. GENERAL: Awake, alert, oriented x3 in no acute distress. HEENT: Normocephalic, atraumatic. Pupils equal, round, and reactive to light and accommodation. Extraocular muscles intact. Anicteric sclerae. Moist mucous membranes. NECK: No JVD, no bruit. CARDIOVASCULAR: Regular. Positive S4. Normal S1 and S2. No S3. No murmurs or rubs. PULMONARY: Clear to auscultation bilaterally. No rales, rhonchi, or wheezing. ABDOMEN: Bowel sounds x4, soft. No rebound, guarding, tenderness. No organomegaly. EXTREMITIES: No clubbing, cyanosis or edema. +2 pedal pulses bilaterally. SKIN: Warm and dry. TEST RESULTS: Review of telemetry monitoring shows sinus bradycardia in the 30s while sleeping. No arrhythmias. No significant pauses. IMPRESSION: 1. Sinus bradycardia while sleeping. 2. Obstructive sleep apnea, not yet started on CPAP. 3. Hypertrophic cardiomyopathy, nonobstructive. 4. Hypertension. 5. Diabetes. 6. Obesity. 7. Tobacco abuse. RECOMMENDATIONS: It was my pleasure to see Mr. Villareal in consultation today. The patient was counseled that his decreased heart rate during sleeping is a normal physiologic response, especially with his obstructive sleep apnea. No further cardiac testing or intervention is necessary at this time, but I do recommend he follow up with sleep medicine as directed for CPAP initiation. Otherwise, he will follow with Dr. Orozco as he normally does for his cardiomyopathy.
--- NOTE | 2016-02-26 23:32 | Discharge Summary ---
Discharge Summary Admission Date: Feb 22, 2016 at 16:09 Discharge Date: Feb 23, 2016 Discharge Disposition: Home Principal Diagnosis: Rectal Bleeding Secondary Diagnoses/Problems: External Hemorrhoid HTN Procedures: sigmoidoscopy Consultations: Gastro Medication Reconciliation Continued Medications: Atorvastatin (Lipitor) 40 Mg Tab 40 MG PO QAM, TAB Carvedilol (Carvedilol) 25 Mg Tab 25 MG PO BID, #62 Cholecalciferol (Vitamin D) 1,000 Inter.unit Tab 1000 INTER.UNIT PO QAM, TAB Insulin Aspart (Novolog Penfill) 100 Unit/ Inj 8 UNITS SC AC, BTL Insulin Glargine (Lantus) 100 Unit/Ml Inj 24 UNITS SC QPM Lisinopril (Zestril) 40 Mg Tab 40 MG PO QAM, TAB Multiple Vitamin (Multivitamin) 1 Tab Tab 1 TAB PO QAM, TAB Omeprazole (Prilosec) 20 Mg Capcr 20 MG PO QAM, CAP Discontinued Medications: Ibuprofen (Advil) 200 Mg Tab 200-600 MG PO Q4H, TAB Admission Information HPI (per Admitting provider): This is a 50 year old male with PMH of GERD, HTN, HOCM, HL, DM 2, and other problems listed below who presents to ED for rectal bleeding. Patient had 1 episode of bright red blood per rectum this morning noticed on toilet paper and 1-2 tablespoons in toilet along with brown colored stool. Patient was recently in ER for back strain and was prescribed narcotic medication, and was constipated after that and had been straining, which resolved. No rectal pain. He has had mild RUQ pain since yesterday which he attributes to irritation from wearing his back brace. He was eating normally without any increased discomfort. He has a cough with yellow sputum for 1 week. No dizziness, fever chills, rhinorrhea, chest pain, SOB, nausea, vomiting, diarrhea, black tarry stools. He has been taking ibuprofen 400 mg q4h PRN back pain. Patient's last colonoscopy was in 12/2014 showed polyp and lipomas. Denies hx of GIB. Physical Exam (per Admitting): General Appearance: WD/WN, no apparent distress, + pertinent finding (alert pleasant cooperative 50 year old male) Head: normocephalic, atraumatic Eyes: normal inspection, PERRL, EOMI ENT: normal ENT inspection, hearing grossly normal, pharynx normal Neck: supple, trachea midline Respiratory/Chest: lungs clear, normal breath sounds, no respiratory distress, no accessory muscle use Cardiovascular: regular rate, rhythm, no murmur, normal peripheral pulses Abdomen/GI: normal bowel sounds, non tender, soft Extremities/Musculoskelatal: no calf tenderness, normal capillary refill, no pedal edema Neurologic/Psych: alert, normal mood/affect, oriented x 3, + pertinent finding (no gross focal deficit) Skin: normal color, warm/dry Hospital Course RECTAL BLEEDING Had 1 episode BRBPR prior to arrival; heme positive rectal exam with external hemorrhoids as per ER provider Likely lower GI bleed Hgb is stable had a sigmoidoscopy done today that only showed external hemorrhoid From GI standpoint pt is stable Tolerated diet very well HYPERTENSION BP elevated in ER Continue lisinopril Coreg was held this morning due to bradycardia and skipped beat BRADYCARDIA Cardiology was consulted Stable from cardiac standpoint DM TYPE 2 will resume Lantus Insulin sliding scale DYSLIPIDEMIA Continue statin TOBACCO ABUSE Cessation advised Nicotine patch ordered DVT PROPHYLAXIS SCDs due to GI bleeding DISPOSITION Obs to telemetry Follows with Dr. Bhatt for primary care Total time spent on discharge = 35 minutes This includes examination of the patient, discharge planning, medication reconciliation, and communication with other providers. Discharge Instructions Discharge Instructions Admission Reason for Admission: Rectal Bleeding Discharge Discharge Diagnosis / Problem: External Hemorrhoid, Hypertension Discharge Goals Goal(s): Decrease discomfort, Improve function, Improve disease control Activity Recommendations Activity Limitations: resume your previous activity . Instructions / Follow-Up Instructions / Follow-Up Follow up with your primary care provider Dr. Bhatt on Feb 27 @ 11:10am Discussed with Patient to avoid taking NSAID such as motrin, aleve, ibuprofen and naproxen Current Hospital Diet Patient's current hospital diet: Diabetes Type 2 Diet, AHA Diet (Heart Healthy) Discharge Diet Recommended Diet: AHA Diet (Heart Healthy), Diabetes Type 2 Diet Procedures Procedures Performed: SIGMOIDOSCOPY Pending Studies Studies pending at discharge: no Work Instructions Additional Instructions: Patient was admitted at [facility] on 02/22/16. Ok to return to work on 02/27/16 with no work restrictions Medical Emergencies . Who to Call and When: Medical Emergencies: If at any time you feel your situation is an emergency, please call 911 immediately. . Non-Emergent Contact Non-Emergency issues call your: Primary Care Provider Call Non-Emergent contact if: you have any medication questions . . "Provider Documentation" section prepared by Gina Lott. VTE Core Measure Inpt VTE Proph given/why not?: SCD's Additional Copies To Santino Bhatt D.O.
== END 2016-02-23 17:36 | disposition home or self-care (01) ==
LOC: ENRESERVDT → ENRESERVTM → C.EDB 11:54 → C.MED 16:09
PROVIDERS: ADMIT Internal Medicine; ATTEND Internal Medicine
DX: K92.1 Melena (principal); K64.4 Residual hemorrhoidal skin tags; K21.9 Gastro-esophageal reflux disease without esophagitis; R00.1 Bradycardia, unspecified; R10.11 Right upper quadrant pain; I42.2 Other hypertrophic cardiomyopathy; E78.00 Pure hypercholesterolemia, unspecified; F17.200 Nicotine dependence, unspecified, uncomplicated; G47.33 Obstructive sleep apnea (adult) (pediatric); I10 Essential (primary) hypertension; E11.9 Type 2 diabetes mellitus without complications; E66.9 Obesity, unspecified; Z68.36 Body mass index [BMI] 36.0-36.9, adult; Z79.4 Long term (current) use of insulin; Z86.010 Personal history of colon polyps

== ENCOUNTER → 2016-03-10 | Outpatient (CLI) | payer BC ==
[~2016-03-10] MED LIST changes: -ACET-1311 PO
--- NOTE | 2016-03-11 06:00 | PAP/PSG TECHNICIAN REPORT ---
[facility] Lease Administration Analyst Polysomnogram Report Study name: None Report date: 03/11/2016 Study date: 03/10/2016 Referring Physician: Mahogany Perez M.D. Name: TRISTA MACEDO Interpreting Physician: Hoa Perez M.D. Date of : 1965 Lease Administration Analyst: ASHLEY Peters. Sex: Male Age: 51 StudyType: PSG PAP Weight: 245 lbs Height: 51 years, Height 5' 9" Neck Circum: BMI: 36.18 Medications: Lantus 100unit/ml, Lisinopril 40mg, Novolog Flexpen 100 unit/ml, Lipitor 40mg, Prilosec 20mg, Coreg 25mg, Multivitamin, Vit D Patient History Study started on room air with 5cwp cpap in room #8. 51 yr old male here tonight for a titration study. He had a HST with an AHI of 63. He has been using cpap at home for about one week but does not like his mask so he will be trying a new one tonight. His neck circ-18inches. Parameters Monitored NPSG: E1-M2, E2-M1, Fp1-M2, Fp2-M1, F3-M2, F4-M2, F4-M1, C3-M2, C4-M2, C4-M1, O1-M2, O2-M2, O2-M1, T3-M2, T4-M1, P3-M2, P4-M1, CHIN1, CHIN2, HR, EKG, Legs, PFLOW, SNOR, FLOW, CFLOW, Tidal Volume, THOR, ABDO, SpO2, PLTH, CPRESS, ETCO2 Wave, ETCO2, pH Sleep Architecture Sleep Stages Time at Lights Off 10:27:32 PM STAGES Time (min.) TST (%) Time at Lights On 5:20:32 AM Wake 73.0 -- Total Recording Time (TRT) 413.50 min. N1 50.5 15 Total Sleep Period (TSP) 402.5 min. N2 125.0 37 Total Sleep Time (TST) 340.0min. N3 51.0 15 Awake Time 73.5 min. REM 113.5 33 Wake after Sleep Onset 62.5 min. Sleep Efficiency (SE) 82 % Sleep Onset Latency (ADRIANA) 10.5 min. Number of Stage 1 Shifts None Awakenings 26 Stage Changes 122 Number of REM periods 11 REM 113.5 33 REM Latency 30.0 min. NREM 226.5 67 Body Position Analysis Supine Right Left Side Prone Vertical Total Sleep Time (min.) 74.6 174.0 122.5 296.50 0.0 0.0 Total Sleep Time (%) 13% 51% 36% 87 0% N/A% Total Sleep Time REM (min.) 0.0 48.5 65.0 None 0.0 0.0 Total Sleep Time NREM (min.) 43.5 125.5 57.5 None 0.0 0.0 Intermittent Wake (min.) 31.1 30.9 11.0 None 0.0 0.0 Total Sleep Period (%) 18% None None None None None Arousals Myoclonus (PLM) * Events Count Index Events Count Index Spontaneous 6 1 Events Awake (PLMW) 95 78.1 Respiratory 37 7.9 Events Asleep w/ Arousal (PLMA) 9 1.6 PLM 9 2 Events Asleep w/o Arousal (PLMS) 219 38.6 Snoring 13 2 Total Asleep 228 40.2 Total 64 11 Total 323 47 Respiratory Analysis * CA OA MA CH H RERA Total Count 3 38 2 0 49 0 92 Index 0.5 6.7 0.4 0 8.6 0 16.2 Mean Duration 15.4 19.4 24.8 0.00 32.9 0.0 26.6 Longest Duration 17.0 29.3 27.8 0.00 27.8 0.0 79.1 Respiratory Event Summary Total Supine ~Supine Right Left Prone REM NREM Apneas Count 43 38 5 5 0 N/A 0 43 Index 7.6 52 1 1.7 0.0 N/A 0 11 Hypopneas (4% Desat) Count 49 20 29 24 5 N/A 3 46 Index 8.6 27.6 6 8.3 2.4 N/A 1.6 12.2 Apneas & All Hypopneas Count 92 58 34 29 5 N/A 3 89 Index 16.2 80 7 10 2 N/A 1.6 23.6 Respiratory Events (Trolley Coach Driver+All Hyp+RERA) Count 92 58 34 29 5 N/A 3 89 Index 16.2 80 7 10.0 2.4 N/A 1.6 23.6 Respiratory Related Arousal Count 37 58 16 15 1 N/A 3 42 Index 7.9 40 3 5 0 N/A 2 11 Snoring Analysis Supine Right Left Prone REM NREM Total Snore duration 54.0 min Snores count 25 1,510 439 N/A 313 1,661 1,974 Snore mean duration 1.6 Sec Snores index 34 521 215 N/A 165.5 440.0 348.4 TST with snoring (%) 15.9% Desaturation Event Summary: Minimum %SpO2 Event Count Mean/Min/Max Duration(sec.) Desaturation Index % Time In Bed > 90 113 28.5 / 6.0 / 60.0 29.2 58.4 86 - 90 14 26.2 / 6.0 / 54.5 5.1 41.3 81 - 85 1 6.3 / 6.3 / 6.3 51.4 0.3 76 - 80 0 N/A 0.0 0.0 71 - 75 0 N/A 0.0 0.0 66 - 70 0 N/A 0.0 0.0 61 - 65 0 N/A 0.0 0.0 56 - 60 0 N/A 0.0 0.0 51 - 55 0 N/A 0.0 0.0 < 50 0 N/A 0.0 0.0 Total REM NREM Awake <50% 0.0 min. 0.0 min. 0.0 min. 0.0 min. 51 - 60% 0.0 min. 0.0 min. 0.0 min. 0.0 min. 61 - 70% 0.0 min. 0.0 min. 0.0 min. 0.0 min. 71 - 80% 0.0 min. 0.0 min. 0.0 min. 0.0 min. 81 - 90% 165.5 min. 26.3 min. 119.7 min. 19.6 min. 91 - 100% 232.2 min. 87.2 min. 106.7 min. 38.3 min. Average 91 91 90 91 Minimum SpO2 84 85 84 85 Desaturation Event Index 17.0 1.1 21.5 31.2 # Desat. Events below 89% 60 1 45 14 Time(%) with Saturation below 89% 15.7 1.3 12.5 1.8 Time(min.) with Saturation below 89% 62.6 5.4 49.9 7.4 Time (mins) REM (mins) NREM (mins) % of TST SpO2 Below 90% 75 2 N73 27.0 SpO2 Below 88% 23 0 0 7 Heart Rate Analysis Min (bpm) Max (bpm) Average (bpm) Awake 63 127 79 NREM 62 95 75 REM 69 92 79 Overall 62 95 77 Supplemental O2 Values Minimum O2 level: None Value Start Time End Time Lease Administration Analyst Comments Mr. Macedo slept in the right, left and supine positions. No cardiac arrhythmia noted. Some leg movements were noted. No bruxism noted. CPAP was initiated at +5CMH2O and up-titrated to a level of +15 CMH2O and was then switched to BiPAP. Increases in pressure were made for respiratory events and very loud snoring. The final setting was BiPAP with an IPAP+[id number] and EPAP+[id number]. A medium Quattro Air full face mask by [employer] was used during titration. He awoke to use the restroom 2 times during the night. He stated that he slept about the same as usual maybe a little better because he did not get up as much as when at home. The final report will be interpreted and signed by a sleep physician. The completed physician report will then be placed in the patient medical record. Therapy Event: Therapy (cm H20) 5 7 8 9 10 11 12 13 Total Time at Pressure (min.) 15.8 5.6 10.6 23.7 6.2 13.7 37.6 32.0 TST at Pressure (min.) 5.3 5.1 7.1 23.7 6.2 13.7 24.6 31.0 # Periods 1 1 1 1 1 1 1 1 Sleep Onset (min.) 10.5 0.0 0.0 0.0 0.0 0.0 0.0 0.0 REM Onset (min.) N/A N/A N/A 8.4 0.0 0.0 0.0 17.7 Sleep Efficiency % 33 91 67 100 100 100 65 96 Wakefulness (%) 66.3 8.9 33.0 0.0 0.0 0.0 34.5 3.1 Wakefulness (min.) 10.5 0.5 3.5 0.0 0.0 0.0 13.0 1.0 NREM 1 (%) 31.5 70.5 5.1 8.4 0.0 0.0 12.0 1.6 NREM 1 (min.) 5.0 4.0 0.5 2.0 0.0 0.0 4.5 0.5 NREM 2 (%) 2.2 20.5 61.9 18.7 0.0 0.0 16.6 53.8 NREM 2 (min.) 0.3 1.2 6.6 4.4 0.0 0.0 6.3 17.2 NREM 3 (%) 0.0 0.0 0.0 19.0 0.0 0.0 0.0 39.9 NREM 3 (min.) 0.0 0.0 0.0 4.5 0.0 0.0 0.0 12.8 REM (%) 0.0 0.0 0.0 53.9 100.0 100.0 36.9 1.6 REM (min.) 0.0 0.0 0.0 12.8 6.2 13.7 13.9 0.5 # Arousals 4 5 1 5 0 2 3 0 Arousal Index 44.9 58.7 8.4 12.6 0.0 8.8 7.3 0.0 # Snore 3 0 74 202 55 108 139 109 Snore Index 33.7 0.0 624.4 510.9 536.0 473.7 338.5 210.9 AHI 67.3 105.7 50.6 7.6 0.0 4.4 4.9 3.9 AHI Supine 67.3 105.7 115.0 N/A N/A N/A N/A N/A AHI Non-Supine N/A N/A 39.6 7.6 0.0 4.4 4.9 3.9 NREM AHI 67.3 105.7 50.6 5.5 N/A N/A 11.1 3.9 REM AHI N/A N/A N/A 9.4 0.0 4.4 0.0 0.0 RDI 67.3 105.7 50.6 7.6 0.0 4.4 4.9 3.9 # Obstructive 5 9 3 0 0 0 0 0 # Central Ap 0 0 0 0 0 0 0 0 # Mixed 0 0 0 0 0 0 0 0 # Hypopneas 1 0 3 3 0 1 2 2 RERAS 0 0 0 0 0 0 0 0 Total Respiratory Events 6 9 6 3 0 1 2 2 Time Below SpO2 89.00% (min.) 0.2 0.8 0.5 4.7 1.8 0.0 7.7 19.1 Mean NREM SpO2 (%) 92 92 91 90 N/A N/A 88 88 Mean REM SpO2 (%) N/A N/A N/A 90 90 91 92 88 Mean Sleep SpO2 (%) 92 92 91 90 90 91 90 88 Min NREM SpO2 (%) 86 86 87 85 N/A N/A 85 84 Min REM SpO2 (%) N/A N/A N/A 85 86 89 90 87 Position Supine (min.) 5.3 5.1 1.0 0.0 0.0 0.0 0.0 0.0 Position Non-supine (min.) 0.0 0.0 6.1 23.7 6.2 13.7 24.6 31.0 LM Index Sleep 67.3 58.7 16.9 7.6 9.7 30.7 9.7 1.9 LM Index NREM 67.3 58.7 16.9 5.5 N/A N/A 5.6 2.0 LM Index REM N/A N/A N/A 9.4 9.7 30.7 13.0 0.0 Mean Heart Rate (bpm) 72 72 75 80 85 84 81 80 Min Heart Rate (bpm) 67 66 68 69 78 78 68 72 Therapy (cm H20) 14 15 13/9 1410 1511 1612 17/13 Total Time at Pressure (min.) 27.5 7.9 10.9 56.6 19.5 61.2 84.2 TST at Pressure (min.) 25.5 7.2 10.6 32.1 13.0 54.2 80.7 # Periods 1 1 1 1 1 1 1 Sleep Onset (min.) 0.0 0.0 0.3 0.0 0.0 0.0 0.0 REM Onset (min.) 15.2 N/A N/A N/A N/A 25.9 3.2 Sleep Efficiency % 92 91 97 56 66 88 95 Wakefulness (%) 7.3 9.0 2.6 43.3 33.4 11.4 4.2 Wakefulness (min.) 2.0 0.7 0.3 24.5 6.5 7.0 3.5 NREM 1 (%) 5.5 25.2 13.8 17.1 38.4 10.1 6.8 NREM 1 (min.) 1.5 2.0 1.5 9.7 7.5 6.2 5.7 NREM 2 (%) 69.1 12.6 83.6 29.9 28.2 26.2 25.5 NREM 2 (min.) 19.0 1.0 9.1 16.9 5.5 16.0 21.5 NREM 3 (%) 12.7 53.2 0.0 9.7 0.0 0.0 24.3 NREM 3 (min.) 3.5 4.2 0.0 5.5 0.0 0.0 20.5 REM (%) 5.5 0.0 0.0 0.0 0.0 52.3 39.2 REM (min.) 1.5 0.0 0.0 0.0 0.0 32.0 33.0 # Arousals 1 5 4 14 12 5 3 Arousal Index 2.4 41.5 22.6 26.2 55.5 5.5 2.2 # Snore 224 97 124 386 6 58 389 Snore Index 527.3 805.0 701.9 722.2 27.7 64.3 289.2 AHI 2.4 33.2 39.6 31.8 78.6 15.5 2.2 AHI Supine N/A N/A N/A 108.0 78.6 58.3 N/A AHI Non-Supine 2.4 33.2 39.6 11.8 N/A 2.9 2.2 NREM AHI 2.5 33.2 39.6 31.8 78.6 37.9 3.8 REM AHI 0.0 N/A N/A N/A N/A 0.0 0.0 RDI 2.4 33.2 39.6 31.8 78.6 15.5 2.2 # Obstructive 0 1 2 9 7 2 0 # Central Ap 0 0 0 2 0 1 0 # Mixed 0 0 0 1 1 0 0 # Hypopneas 1 3 5 5 9 11 3 RERAS 0 0 0 0 0 0 0 Total Respiratory Events 1 4 7 17 17 14 3 Time Below SpO2 89.00% (min.) 9.2 0.8 2.4 0.4 2.8 4.9 0.0 Mean NREM SpO2 (%) 89 91 90 91 91 90 92 Mean REM SpO2 (%) 89 N/A N/A N/A N/A 92 92 Mean Sleep SpO2 (%) 89 91 90 91 91 91 92 Min NREM SpO2 (%) 86 88 88 87 86 86 89 Min REM SpO2 (%) 87 N/A N/A N/A N/A 89 90 Position Supine (min.) 0.0 0.0 0.0 6.7 13.0 12.4 0.0 Position Non-supine (min.) 25.5 7.2 10.6 25.4 0.0 41.8 80.7 LM Index Sleep 21.2 257.3 186.8 159.0 32.4 21.0 11.2 LM Index NREM 22.5 257.3 186.8 159.0 32.4 10.8 5.0 LM Index REM 0.0 N/A N/A N/A N/A 28.1 20.0 Mean Heart Rate (bpm) 81 80 77 76 70 75 73 Min Heart Rate (bpm) 70 68 68 66 62 63 62
--- NOTE | 2016-03-15 10:23 | POLYSOMNOGRAPH REPORT ---
REFERRING PERSON: Dr. Neida Perez. SCHOOL CLERK: Caitlin Brown. Mr. Villareal is a 51-year-old male sent for CPAP titration study. He had a home sleep test which showed an AHI of 63. He has been on CPAP at home for about a week, but is struggling with mask fit. He will be trying a new interface tonight. He has chosen a medium [employer] Quattro Air full facemask for his titration. His [place] Sleepiness Scale score on the evening of this study is not recorded. BMI is 36.18. Following the technical and digital specifications of the [employer] (AASM) a standard diagnostic polysomnogram was performed monitoring EEG, EOG, EMG (chin and leg deviations), oxygen saturation, body position, digital video, respiratory effort and airflow. The sleep Stage and event scoring was based on the AASM Manual for the Scoring of Sleep and Associated Events 2007 edition. Apneas are defined as a drop in the peak thermal sensor excursion by >90% of baseline for at least 10 seconds. Hypopneas were scored using the 4% oxygen desaturation rule ([employer]A-[employer]) and a decrease in the nasal pressure excursions by >30% of baseline for at least 10 seconds. Respiratory effort-related arousal (RERA's) is defined as a sequence of breaths lasting at least 10 seconds characterized by increasing respiratory effort or flattening of the nasal pressure waveform leading to an arousal from sleep when the sequence of breaths does not meet criteria for an apnea or hypopnea. Apnea Hypopnea index (AHI) is defined as the number of apneas and hypopneas occurring in an hour of sleep. Respiratory disturbance index (RDI) is defined as the number of apneas, hypopneas, and RERA's occurring in an hour of sleep. Mr. Villareal's total sleep period time was 402.5 minutes. Total sleep time was 340 minutes. Sleep efficiency was 82%. Latency to sleep onset was 10.5 minutes with wake after sleep onset of 62.5 minutes. Total non-REM sleep time was 226.5 minutes. He spent 15% of that time in N1 sleep, 37% in N2 sleep and 15% in N3 sleep. REM latency was 30 minutes which was short. Total REM sleep time was 113.5 minutes or 33% of total sleep time. This is consistent with REM rebound, which treatment of his apnea. There were 64 cortical arousals from sleep. 13 of these arousals were due to snoring, 9 due to periodic limb movements of sleep, 37 were due to respiratory events, and 6 were spontaneous. There were 228 periodic limb movements noted on this test. Limb movement index was 40.2. Limb movement with arousal index was 1.6. There were 3 central apneas, 38 obstructive apneas and 2 mixed apneas on this titration. Additionally, there were 49 hypopneas. Apnea-hypopnea index was 16.2. 1974 snoring events were recorded. Total sleep time with snoring was 15.9%. Mean saturation during sleep was 91% with desaturations to 84%. Saturations were less than 89% for 62.6 minutes of sleep time. These did seem to improve if this patient was not on his back and with increasing pressure. There was no cardiac ectopy noted on this study. During sleep, Mr. Villareal's heart rate ranged from a low of 62 beats per minute to a high of 95 beats per minute. Mr. Villareal was titrated from a CPAP pressure of 5 to a CPAP pressure of 15 over the early part of this evening. Due to continued respiratory events on a pressure of 15, he was switched to bilevel therapy and over the remainder of the night was titrated from a BIPAP pressure of 13/9-17/. He was observed on / for 80.7 minutes of sleep time. There were 33 minutes of REM sleep; however, no supine REM sleep on this pressure. AHI and RDI on this pressure were both 2.2 and there were no desaturations less than 89%. IMPRESSION AND PLAN: Successful PAP titration study in this patient with severe sleep apnea. I would recommend that this patient be started on bilevel therapy with an IPAP of 17 and EPAP of 13. A download can be reviewed in 1 month both to check compliance as well as apnea-hypopnea index and further pressure adjustments can be made at that time. The limitation of this study is that this patient did not have supine REM sleep on this pressure.
== END | disposition home or self-care (01) ==
LOC: C.NEUR 21:00
PROVIDERS: ATTEND Family Medicine
DX: G47.33 Obstructive sleep apnea (adult) (pediatric) (principal); G47.34 Idiopathic sleep related nonobstructive alveolar hypoventilation